=== PATIENT | female | born 1940 | race American Indian/Alaskan Native ===

== ENCOUNTER → 2021-03-28 | Outpatient (CLI) | payer MEDICARE, OTHER ==
[~2021-03-28] MED LIST: ALEN70 PO; AMIT10 PO; AMLO5 PO; ASCO500 PO; ASPI81CH PO; ASPI81EC PO; ATOR10 PO; ATOR20 PO; AVASTATIN; Amitriptyline H10 MG PO; BENAML20/5 PO; FISH1000 PO; GLUC500 PO; GLUCHON PO; Glucophage PO; Glucophage1000 MG PO; HYDCHL12.5 PO; METF500 PO; Nexium40 MG PO; Omeprazole20 M1; PREG50 PO; Polytrim Eye Dr10 ML LEFTEYE; SITA100T2 PO; TOCO400 PO; VITAMINS; Vitamin C1000 M1 PO
== END | disposition home or self-care (01) ==
LOC: LAB SHORT 15:29 → LAB 15:29
DX: M10.9 Gout, unspecified (principal)
CPT/HCPCS: 88305; 89060